=== PATIENT | female | born 1985 | race African-American/Black ===

== ENCOUNTER 2016-04-10 17:25 | Emergency (ER) | payer MEDICAID, OTHER ==
[~2016-04-10] VITALS: Ht 162.6 cm; Wt 54.4 kg
--- NOTE | 2016-04-10 18:07 | Emergency Room Report ---
History of Present Illness General Chief Complaint: Medical Clearance Present Illness HPI 30 YO female Pt. presents to the ED brought by law enforcement for medical clearance for incarceration. PT C/O chronic back pain and states she takes Oxycodone 30mgs daily for chronic back pain, and Klonopin 2mg daily for anxiety. Pt. states she hasn't had her medication in over 24 hours. Pt reports 9/10 LBP and increased anxiety. pt. denies recent trauma or fall. Denies numbness tingling or loss of sensation or gross motor movements of the extremities, incontinence of bowel or bladder. Denies CP, Palpitations, LOC, AMS , dizziness, Changes in Vision, Sensation, paresthesias, or a sudden severe headache. Allergies: Coded Allergies: No Known Allergies (Unverified , 04/10/16) Patient History Past Medical History: see triage record Past Surgical History: none Pertinent Family History: none Last Menstrual Period: 03/25/16 Now: No Immunizations: UTD Reviewed Nursing Documentation: PMH: Agreed, PSxH: Agreed Review of Systems All Other Systems: negative except mentioned in HPI Physical Exam Vital Signs Date Time Temp Pulse Resp B/P Pulse Ox O2 Delivery O2 Flow Rate FiO2 04/10/16 17:39 98.2 102 17 110/77 98 Room Air Sp02 EP Interpretation: reviewed, abnormal - mild tachycardia at 102 General Appearance: no apparent distress, alert, GCS 15, non-toxic Head: normocephalic, atraumatic Eyes: bilateral eye PERRL, bilateral eye normal inspection ENT: hearing grossly normal, normal pharynx, no angioedema, normal voice Neck: full range of motion, supple/symm/no masses Respiratory: chest non-tender, lungs clear, normal breath sounds, speaking full sentences Cardiovascular #1: regular rate, rhythm, no edema Cardiovascular #2: 2+ carotid (R), 2+ carotid (L), 2+ radial (R), 2+ radial (L) , 2+ dorsalis pedis (R), 2+ dorsalis pedis (L) Gastrointestinal: normal bowel sounds, non tender, soft, no guarding, no rebound Rectal: deferred Genitourinary: normal inspection, no CVA tenderness Musculoskeletal: back normal, gait/station normal, normal range of motion, non- tender, no calf tenderness Neurologic: alert, oriented x3, responsive, motor strength/tone normal, sensory intact, speech normal Psychiatric: judgement/insight normal, memory normal, mood/affect normal, no suicidal/homicidal ideation Skin: normal color, no rash, warm/dry, well hydrated Lymphatic: no adenopathy Medical Decision Making PA Attestation Dr. Wade is my supervising Physician whom patient management has been discussed with. Diagnostic Impression: Primary Impression: Medical clearance for incarceration Additional Impression: Chronic back pain Qualified Codes: M54.5 - Low back pain; G89.29 - Other chronic pain ER Course Pt. presents to the ED for medical clearance for incarceration. PT C/O chronic back pain and states she takes Oxycodone 30mgs daily for chronic back pain, and Klonopin 2mg daily for anxiety. Pt. states she hasn't had her medication in over 24 hours. Pt reports 9/10 LBP and increased anxiety. pt. denies recent trauma or fall. Ddx considered but are not limited to Head Trauma, [place], ACS, SI/HI, URI, SAH, Fractures, Dislocations, Tazer barbs, Abrasions, Benzodiazepine withdraw. Vital signs: are WNL, pt. is afebrile, has mild tachycardia at 102Bpm, normal BP. H&PE are most consistent with: normal limited physical examination. - I have reviewed this pt's CURES report: over the course of 6 months she frequently fills an rx for both oxycodone 30mg and klonopin regularly however in small amounts less than 20 each month which are not consistent with being prescribed these medications on a daily basis, more consistent with PRN basis. ORDERS: none required at this time, the diagnosis is clinical ED INTERVENTIONS: -Tylenol 500mg PO DISCHARGE: At this time pt. is stable for d/c to law enforcement. Will provide printed patient care instructions, and any necessary prescriptions. Care plan and follow up instructions have been discussed with the patient prior to discharge. Last Vital Signs Date Time Temp Pulse Resp B/P Pulse Ox O2 Delivery O2 Flow Rate FiO2 04/10/16 17:39 98.2 102 17 110/77 98 Room Air Disposition: HOME, SELF-CARE Condition: Stable Departure Forms: Correction Clearance Patient Instructions: Medical Screening Exam Additional Instructions: Follow up with a PCP in 3-5 days Return sooner to ED if new symptoms occur, or current symptoms become worse. Ivana Rodriguez Apr 10, 2016 18:07
[2016-04-10 18:29] VITALS: BP 110/77
[2016-04-10] MEDS ORDERED: Acetaminophen 500mg (ES) tab ORAL ONE (18:30)
== END 2016-04-10 18:29 ==
LOC: EMR 18:19
DX: Z02.89 Encounter for other administrative examinations (principal); G89.29 Other chronic pain; M54.5 Low back pain
CPT/HCPCS: 99282